=== PATIENT | male | born 2000 | race Two or more races ===

== ENCOUNTER 2021-08-18 17:45 | Emergency (ER) | payer OTHER ==
[~2021-08-18] VITALS: Ht 185.4 cm; Wt 72.6 kg
--- NOTE | 2021-08-18 17:56 | NUR ---
BIBS c/o left knee discomfort while walking happened while playing basketball denies pain. PLACED ON BED, [id number].
--- NOTE | 2021-08-18 17:57 | NUR ---
AT BED SIDE
--- NOTE | 2021-08-18 18:02 | NUR ---
X-RAY TECH AT BED SIDE
[2021-08-18] MEDS ORDERED: IBUP-1955 PO (19:06)
--- NOTE | 2021-08-18 19:15 | NUR ---
Patient discharged to home in stable condition. Written and verbal after care instructions given. Patient verbalizes understanding of instruction.
[2021-08-18 19:24] VITALS: BP 118/75
== END 2021-08-18 19:15 | disposition home or self-care (01) ==
LOC: ER 17:52
DX: S89.92XA Unspecified injury of left lower leg, initial encounter (principal); W18.30XA Fall on same level, unspecified, initial encounter; Y93.67 Activity, basketball; Y92.89 Other specified places as the place of occurrence of the external cause; Y99.8 Other external cause status
CPT/HCPCS: 73564-TC